=== PATIENT | male | born 1955 | race Caucasian/White ===

== ENCOUNTER 2022-02-04 10:03 | Inpatient (IN) ==
[2022-02-04] MEDS: *HR* OxyCODONE Immed Rel 5 MG TABLET PO PRN ×2 (16:16→21:20)
[2022-02-04] MEDS: Baclofen 10 MG TABLET PO SCH (21:20)
[2022-02-04] MEDS: Gabapentin 100 MG CAPSULE PO SCH (21:20)
[2022-02-04] MEDS: diazePAM 5 MG TABLET PO PRN (21:20)
[2022-02-05] MEDS: *HR* Enoxaparin 40 MG/0.4 ML SYRINGE SQ SCH (04:48)
[2022-02-05] MEDS: *HR* OxyCODONE Immed Rel 5 MG TABLET PO PRN ×3 (04:48→12:35)
[2022-02-05 05:03] LABS: Basophils # 0.1 K/mcL (0.0-0.2); Basophils % 0.8 %; Eosinophils # 0.4 K/mcL (0.0-0.6); Hemoglobin 9.7 g/dL (12.9-16.9); Immature Granulocytes % 0.5 % (0-4); Lymphocytes # 2.3 K/mcL (0.6-4.6); Lymphocytes % 25.5 %; Mean Corpuscular HGB Conc 31.3 g/dL (31.6-35.5); Mean Corpuscular Hemoglobin 29.2 pg (28.0-33.3); Mean Corpuscular Volume 93.4 fL (83.0-100.0); Mean Platelet Volume 9.8 fL (9.4-12.4); Monocytes # 0.9 K/mcL (0.0-1.3); Monocytes % 9.7 %; Neutrophils # 5.4 K/mcL (1.6-8.9); Platelet Count 455 K/mcL (140-400); Red Blood Count 3.32 M/mcL (4.19-5.50); Red Cell Distribution Width 14.1 % (11.5-14.5); Segmented Neutrophils % 59.5 %; White Blood Count 9.1 K/mcL (4.3-11.1)
[2022-02-05 05:16] LABS: BUN/Creatinine Ratio 16 (6-26); Blood Urea Nitrogen 17 mg/dL (8-23); Calcium 9.6 mg/dL (8.6-10.3); Carbon Dioxide 30 mEq/L (23-29); Chloride 101 mEq/L (98-107); Glucose 105 mg/dL (70-105); Osmolality,Calculated 286 (280-300); Potassium 4.1 mEq/L (3.5-5.1); Sodium 137 mEq/L (136-145); eGFR For African Americans > 60 (> 60); eGFR For Non-African Americans > 60 (> 60)
[2022-02-05] MEDS: BuPROPion XL (24 HR) 150 MG TABLET PO SCH (08:40)
[2022-02-05] MEDS: Sennosides 8.6 MG TABLET PO SCH (08:41)
[2022-02-05] MEDS: polyethylene glycoL 3350 17 GM POWD.PACK PO SCH (08:41)
[2022-02-05] MEDS: Gabapentin 100 MG CAPSULE PO SCH ×3 (08:41→19:49)
[2022-02-05] MEDS: Baclofen 10 MG TABLET PO SCH ×2 (08:41→19:49)
[2022-02-05] MEDS: Fenofibrate 54 MG TABLET PO SCH (08:41)
[2022-02-05 15:05] LABS: Bilirubin,Urine Negative (Negative); Blood,Urine Negative (Negative); Clarity,Urine Clear (Clear); Color,Urine Yellow (Yellow); Glucose,Urine (UA) Normal (Normal); Ketones,Urine Negative (Negative); Leukocyte Esterase,Urine Negative (Negative); Nitrite,Urine Negative (Negative); PH,Urine 6.5 pH Units (5.0-8.0); Protein,Urine Negative (Neg-Trace); Specific Gravity,Urine 1.015 (1.010-1.025); Urobilinogen,Urine Normal (Normal)
[2022-02-06] MEDS: *HR* Enoxaparin 40 MG/0.4 ML SYRINGE SQ SCH (06:13)
[2022-02-06] MEDS: *HR* OxyCODONE Immed Rel 5 MG TABLET PO PRN ×3 (06:15→15:20)
[2022-02-06] MEDS: BuPROPion XL (24 HR) 150 MG TABLET PO SCH (08:47)
[2022-02-06] MEDS: Baclofen 10 MG TABLET PO SCH ×2 (08:47→21:16)
[2022-02-06] MEDS: Gabapentin 100 MG CAPSULE PO SCH ×3 (08:47→21:15)
[2022-02-06] MEDS: Fenofibrate 54 MG TABLET PO SCH (08:47)
[2022-02-06] MEDS: Sennosides 8.6 MG TABLET PO SCH (08:48)
[2022-02-06] MEDS: polyethylene glycoL 3350 17 GM POWD.PACK PO SCH (08:48)
[2022-02-06] MEDS ORDERED: Ergocalciferol (VIT D2) 50,000 UNIT (1.25MG) CAP PO SCH (09:00)
[2022-02-06 09:43] LABS: Bilirubin,Urine Negative (Negative); Blood,Urine Negative (Negative); Clarity,Urine Clear (Clear); Color,Urine Yellow (Yellow); Glucose,Urine (UA) Normal (Normal); Ketones,Urine Negative (Negative); Leukocyte Esterase,Urine Negative (Negative); Nitrite,Urine Negative (Negative); Protein,Urine Negative (Neg-Trace); Urobilinogen,Urine Normal (Normal)
[2022-02-06] MEDS: Ergocalciferol (VIT D2) 50,000 UNIT (1.25MG) CAP PO SCH (10:43)
[2022-02-07] MEDS: BuPROPion XL (24 HR) 150 MG TABLET PO SCH (06:35)
[2022-02-07] MEDS: Gabapentin 100 MG CAPSULE PO SCH ×3 (06:35→21:40)
[2022-02-07] MEDS: Baclofen 10 MG TABLET PO SCH ×2 (06:36→21:40)
[2022-02-07] MEDS: *HR* OxyCODONE Immed Rel 5 MG TABLET PO PRN ×2 (06:36→12:08)
[2022-02-07] MEDS: Fenofibrate 54 MG TABLET PO SCH (06:37)
[2022-02-07] MEDS: *HR* Enoxaparin 40 MG/0.4 ML SYRINGE SQ SCH (06:37)
[2022-02-07] MEDS: polyethylene glycoL 3350 17 GM POWD.PACK PO SCH (11:55)
[2022-02-07] MEDS: Sennosides 8.6 MG TABLET PO SCH (11:55)
[2022-02-07] MEDS: diazePAM 5 MG TABLET PO PRN (12:08)
[2022-02-08 05:45] LABS: Hematocrit 28.1 % (37.5-50.1); Hemoglobin 8.9 g/dL (12.9-16.9); Mean Corpuscular HGB Conc 31.7 g/dL (31.6-35.5); Mean Corpuscular Hemoglobin 29.4 pg (28.0-33.3); Mean Corpuscular Volume 92.7 fL (83.0-100.0); Mean Platelet Volume 10.2 fL (9.4-12.4); Platelet Count 392 K/mcL (140-400); Red Blood Count 3.03 M/mcL (4.19-5.50); Red Cell Distribution Width 13.9 % (11.5-14.5)
[2022-02-08 06:02] LABS: BUN/Creatinine Ratio 19 (6-26); Blood Urea Nitrogen 20 mg/dL (8-23); Calcium 9.8 mg/dL (8.6-10.3); Carbon Dioxide 29 mEq/L (23-29); Chloride 102 mEq/L (98-107); Glucose 120 mg/dL (70-105); Magnesium 1.7 mg/dL (1.6-2.6); Osmolality,Calculated 288 (280-300); Potassium 4.6 mEq/L (3.5-5.1); Sodium 137 mEq/L (136-145); eGFR For African Americans > 60 (> 60); eGFR For Non-African Americans > 60 (> 60)
[2022-02-08] MEDS: *HR* Enoxaparin 40 MG/0.4 ML SYRINGE SQ SCH (06:16)
[2022-02-08] MEDS: BuPROPion XL (24 HR) 150 MG TABLET PO SCH (08:05)
[2022-02-08] MEDS: *HR* OxyCODONE Immed Rel 5 MG TABLET PO PRN ×2 (08:05→15:40)
[2022-02-08] MEDS: Baclofen 10 MG TABLET PO SCH ×2 (08:05→20:04)
[2022-02-08] MEDS: Fenofibrate 54 MG TABLET PO SCH (08:05)
[2022-02-08] MEDS: Gabapentin 100 MG CAPSULE PO SCH ×3 (08:05→20:04)
[2022-02-08] MEDS: Sennosides 8.6 MG TABLET PO SCH (08:05)
[2022-02-08] MEDS: polyethylene glycoL 3350 17 GM POWD.PACK PO SCH (08:09)
[2022-02-08] MEDS: diazePAM 5 MG TABLET PO PRN (15:40)
[2022-02-09] MEDS: *HR* OxyCODONE Immed Rel 5 MG TABLET PO PRN ×2 (08:03→17:08)
[2022-02-09] MEDS: BuPROPion XL (24 HR) 150 MG TABLET PO SCH (08:04)
[2022-02-09] MEDS: Sennosides 8.6 MG TABLET PO SCH (08:05)
[2022-02-09] MEDS: Baclofen 10 MG TABLET PO SCH ×2 (08:05→20:41)
[2022-02-09] MEDS: Gabapentin 100 MG CAPSULE PO SCH ×3 (08:05→20:41)
[2022-02-09] MEDS: Fenofibrate 54 MG TABLET PO SCH (08:05)
[2022-02-09] MEDS: *HR* Enoxaparin 40 MG/0.4 ML SYRINGE SQ SCH (08:05)
[2022-02-09] MEDS: polyethylene glycoL 3350 17 GM POWD.PACK PO SCH (08:05)
[2022-02-10] MEDS: *HR* Enoxaparin 40 MG/0.4 ML SYRINGE SQ SCH (05:51)
[2022-02-10] MEDS: polyethylene glycoL 3350 17 GM POWD.PACK PO SCH (09:36)
[2022-02-10] MEDS: BuPROPion XL (24 HR) 150 MG TABLET PO SCH (09:37)
[2022-02-10] MEDS: *HR* OxyCODONE Immed Rel 5 MG TABLET PO PRN ×2 (09:37→23:05)
[2022-02-10] MEDS: Fenofibrate 54 MG TABLET PO SCH (09:38)
[2022-02-10] MEDS: Gabapentin 100 MG CAPSULE PO SCH ×3 (09:38→21:13)
[2022-02-10] MEDS: Sennosides 8.6 MG TABLET PO SCH (09:38)
[2022-02-10] MEDS: Baclofen 10 MG TABLET PO SCH ×2 (09:38→21:13)
[2022-02-11 04:47] LABS: Hemoglobin 9.4 g/dL (12.9-16.9); Mean Corpuscular HGB Conc 31.3 g/dL (31.6-35.5); Mean Corpuscular Hemoglobin 29.2 pg (28.0-33.3); Mean Corpuscular Volume 93.2 fL (83.0-100.0); Platelet Count 366 K/mcL (140-400); Red Blood Count 3.22 M/mcL (4.19-5.50); Red Cell Distribution Width 13.9 % (11.5-14.5); White Blood Count 8.5 K/mcL (4.3-11.1)
[2022-02-11 05:02] LABS: BUN/Creatinine Ratio 16 (6-26); Blood Urea Nitrogen 17 mg/dL (8-23); Calcium 9.7 mg/dL (8.6-10.3); Carbon Dioxide 30 mEq/L (23-29); Chloride 101 mEq/L (98-107); Glucose 131 mg/dL (70-105); Magnesium 1.7 mg/dL (1.6-2.6); Osmolality,Calculated 289 (280-300); Potassium 3.9 mEq/L (3.5-5.1); Sodium 138 mEq/L (136-145); eGFR For African Americans > 60 (> 60); eGFR For Non-African Americans > 60 (> 60)
[2022-02-11] MEDS: *HR* Enoxaparin 40 MG/0.4 ML SYRINGE SQ SCH (05:40)
[2022-02-11] MEDS: BuPROPion XL (24 HR) 150 MG TABLET PO SCH (08:55)
[2022-02-11] MEDS: Fenofibrate 54 MG TABLET PO SCH (08:55)
[2022-02-11] MEDS: Baclofen 10 MG TABLET PO SCH ×2 (08:55→17:09)
[2022-02-11] MEDS: Gabapentin 100 MG CAPSULE PO SCH ×3 (08:55→20:23)
[2022-02-11] MEDS: polyethylene glycoL 3350 17 GM POWD.PACK PO SCH ×2 (08:57→13:28)
[2022-02-11] MEDS: Sennosides 8.6 MG TABLET PO SCH ×2 (08:57→13:28)
[2022-02-12] MEDS: *HR* OxyCODONE Immed Rel 5 MG TABLET PO PRN ×3 (05:07→22:39)
[2022-02-12] MEDS: *HR* Enoxaparin 40 MG/0.4 ML SYRINGE SQ SCH (05:08)
[2022-02-12] MEDS: polyethylene glycoL 3350 17 GM POWD.PACK PO SCH ×2 (07:51→20:04)
[2022-02-12] MEDS: Baclofen 10 MG TABLET PO SCH ×2 (07:51→20:03)
[2022-02-12] MEDS: Gabapentin 100 MG CAPSULE PO SCH ×3 (07:51→19:58)
[2022-02-12] MEDS: Fenofibrate 54 MG TABLET PO SCH (07:52)
[2022-02-12] MEDS: Sennosides 8.6 MG TABLET PO SCH ×2 (07:52→20:04)
[2022-02-12] MEDS: BuPROPion XL (24 HR) 150 MG TABLET PO SCH (07:52)
[2022-02-13] MEDS: *HR* Enoxaparin 40 MG/0.4 ML SYRINGE SQ SCH (05:31)
[2022-02-13] MEDS: polyethylene glycoL 3350 17 GM POWD.PACK PO SCH ×2 (07:40→19:52)
[2022-02-13] MEDS: BuPROPion XL (24 HR) 150 MG TABLET PO SCH (07:40)
[2022-02-13] MEDS: Fenofibrate 54 MG TABLET PO SCH (07:40)
[2022-02-13] MEDS: Baclofen 10 MG TABLET PO SCH ×2 (07:40→19:50)
[2022-02-13] MEDS: Sennosides 8.6 MG TABLET PO SCH ×2 (07:40→19:51)
[2022-02-13] MEDS: Gabapentin 100 MG CAPSULE PO SCH ×3 (07:40→21:19)
[2022-02-13] MEDS: *HR* OxyCODONE Immed Rel 5 MG TABLET PO PRN ×2 (07:44→22:12)
[2022-02-13] MEDS: Ergocalciferol (VIT D2) 50,000 UNIT (1.25MG) CAP PO SCH (07:44)
[2022-02-13] MEDS: diazePAM 5 MG TABLET PO PRN (15:36)
[2022-02-13 18:51] VITALS: RESP 15
[2022-02-14] MEDS: *HR* Enoxaparin 40 MG/0.4 ML SYRINGE SQ SCH (05:23)
[2022-02-14 07:26] VITALS: BP 107/65; PULSE 60; TEMP 98.1; O2SAT 95
[2022-02-14] MEDS: BuPROPion XL (24 HR) 150 MG TABLET PO SCH (07:32)
[2022-02-14] MEDS: Fenofibrate 54 MG TABLET PO SCH (07:32)
[2022-02-14] MEDS: Baclofen 10 MG TABLET PO SCH (07:32)
[2022-02-14] MEDS: Gabapentin 100 MG CAPSULE PO SCH ×2 (07:32→14:07)
[2022-02-14] MEDS: polyethylene glycoL 3350 17 GM POWD.PACK PO SCH (07:32)
[2022-02-14] MEDS: Sennosides 8.6 MG TABLET PO SCH (07:33)
[2022-02-14] MEDS: *HR* OxyCODONE Immed Rel 5 MG TABLET PO PRN ×2 (07:36→14:07)
== END 2022-02-14 14:20 | disposition home or self-care (01) | DRG 566 ==
LOC: INPGRE 13:50
PROVIDERS: ADMIT Family Medicine; ATTEND Family Medicine